=== PATIENT | female | born 1965 | race Caucasian/White ===

== ENCOUNTER 2017-04-22 13:16 | Day surgery (SDC) | payer OTHER ==
[~2017-04-22] VITALS: Ht 157.5 cm; Wt 75.7 kg
[2017-04-22] MEDS ORDERED: IBUPROFEN (14:11)
[2017-04-22 15:23] VITALS: BP 148/76; PULSE 57; RESP 20
[2017-04-22] MEDS ORDERED: PROPOFOL 40 ML ONE (16:07)
[2017-04-22] MEDS ORDERED: PROPOFOL 20 ML ONE (16:31)
[2017-04-22 17:01] VITALS: BP 131/63; PULSE 61; RESP 12
--- NOTE | 2017-04-23 02:42 | GILP ---
DATE OF PROCEDURE: 04/22/2017 PROCEDURE: Colonoscopy with polyp ablation. HISTORY AND INDICATIONS: The patient is being evaluated for colorectal cancer screening. PREMEDICATION: Monitored anesthesia care by anesthesiologist. INSTRUMENT USED: Olympus colonoscope. PREPARATION: Adequate. TECHNIQUE: After informed consent, with the patient/relatives understanding the procedure, its indications potential risks and complications, including but not limited to: allergic reaction, bleeding, perforation, infection, missed lesions and after all pertinent questions were answered to the patient's satisfaction, the patient/relatives signed the witnessed informed consent. Following this, premedication was administered slowly IV push by under careful cardiovascular and respiratory monitoring with pulse oximetry, automatic blood pressure and awake overnight monitor. Once the sedative effect was achieved, the patient was placed in the left lateral decubitus position, digital rectal examination was performed. The colonoscope was then introduced and advanced under visual control throughout all segments of the colon including: the rectum, sigmoid, descending colon, splenic flexure, transverse colon, hepatic flexure, ascending colon and finally reaching the cecum which was clearly identified by transillumination, finger indentation and the ileocecal valve. Careful examination of the mucosa of the lower gastrointestinal tract both on insertion as well as withdrawal of the instrument disclosed the following findings: RECTAL EXAMINATION: No evidence of perirectal disease, no masses. COLONIC MUCOSA: The mucosa is remarkable for a 3-mm rectal polyp, which was ablated with biopsy forceps. There is severe diverticulosis throughout the colon in a universal distribution. The cecum was reached and identified by the ileocecal valve and appendiceal orifice. The instrument was then withdrawn, re-examined the mucosa in detail, and no additional abnormalities were noted with the exception of moderate-sized internal hemorrhoids. IMPRESSION: 1. A 3-mm rectal polyp, ablated. 2. Severe universal diverticulosis. 3. Moderate-sized internal hemorrhoids. RECOMMENDATIONS: 1. Pathology will be reviewed with this is available. 2. Hemoccult stool testing is recommended. 3. Surveillance colonoscopy in 5 years is recommended. Dictated By: Christina Abbott MD /[email or web address] /Document#: [id number]
== END 2017-04-22 18:11 | disposition home or self-care (01) ==
LOC: GIL 13:16
PROVIDERS: ATTEND Internal Medicine Gastroenterology
DX: Z12.11 Encounter for screening for malignant neoplasm of colon (principal); K62.1 Rectal polyp; K57.90 Diverticulosis of intestine, part unspecified, without perforation or abscess without bleeding; K64.8 Other hemorrhoids; E11.9 Type 2 diabetes mellitus without complications; E78.5 Hyperlipidemia, unspecified
CPT/HCPCS: 45380; 88305; Z7610